=== PATIENT | male | born 1995 | race Caucasian/White ===

== ENCOUNTER 2022-01-25 13:22 | Emergency (ER) | payer SELFPAY ==
[~2022-01-25] VITALS: Ht 182.9 cm; Wt 77.3 kg
[2022-01-25 13:41] VITALS: BP 121/69
== END 2022-01-25 14:07 ==
LOC: ER 13:23
DX: S50.812A Abrasion of left forearm, initial encounter (principal); S50.811A Abrasion of right forearm, initial encounter; X58.XXXA Exposure to other specified factors, initial encounter; Y93.89 Activity, other specified; Y92.89 Other specified places as the place of occurrence of the external cause; Y99.8 Other external cause status
CPT/HCPCS: 99283